=== PATIENT | female | born 1995 | race Caucasian/White ===

== ENCOUNTER 2024-04-13 19:18 | Emergency (ER) | payer OTHER ==
[~2024-04-13] VITALS: Ht 172.7 cm; Wt 63.6 kg
[2024-04-13 19:27] VITALS: TEMP 98.3
[2024-04-13 19:39] LABS: COVID AG,FIA SOURCE NASAL SWAB
[2024-04-13 20:09] LABS: SARS-COV2 (COVID) ANTIGEN,FIA Negative (Negative)
[2024-04-13 20:11] LABS: INFLUENZA TYPE B NEGATIVE FOR TYPE B (NEGATIVE)
[2024-04-13 20:15] VITALS: BP 109/67; PULSE 99; RESP 18; O2SAT 97
[2024-04-13 20:15] LABS: INFLUENZA TYPE A POSITIVE FOR TYPE A (NEGATIVE)
[2024-04-13] MEDS ORDERED: ONDA-104 PO (20:25)
[2024-04-13] MEDS ORDERED: OSEL75CA45 PO (20:25)
[2024-04-13] MEDS: ALBUTEROL SULFATE HFA 90 MCG/PUFF 8 GM INHALER IH ONE (20:26)
[2024-04-13] MEDS: ONDANSETRON 4 MG TABLET PO ONE (20:33)
[2024-04-13] MEDS: IBUPROFEN 400 MG TABLET PO ONE (20:33)
[2024-04-13] MEDS: OSELTAMIVIR PHOSPHATE 75 MG CAPSULE PO ONE (20:33)
== END 2024-04-13 20:48 | disposition home or self-care (01) ==
LOC: EMS 19:21
DX: J10.1 Influenza due to other identified influenza virus with other respiratory manifestations (principal); R11.0 Nausea; R19.7 Diarrhea, unspecified; J45.909 Unspecified asthma, uncomplicated; Z20.822 Contact with and (suspected) exposure to COVID-19
CPT/HCPCS: 99284; 87426; 87804; 94640; Q0162; J3535